=== PATIENT | female | born 1990 | race African-American/Black ===

== ENCOUNTER 2019-02-01 21:36 | Emergency (ER) | payer SELFPAY ==
[~2019-02-01] VITALS: Ht 180.3 cm; Wt 65.8 kg
--- NOTE | 2019-02-01 21:45 | NUR ---
ED Nurse Note: Patient walked into ED c/o left ear pain that has been an ongoing issue for the past 3 days, patient rates his pain a 5/10 pain. no drainage or discharge coming out form the ear, patient is alert and oriented x4, ambulatory with a steady gait, VSS
[2019-02-01 21:52] VITALS: BP 113/76
[2019-02-01] MEDS ORDERED: DEBROX15 M1 BOTH EARS (22:00)
[2019-02-01] MEDS ORDERED: AMOXICILLIN875 MG PO (22:00)
--- NOTE | 2019-02-01 22:01 | Emergency Room Report ---
History of Present Illness General Chief Complaint: Earache Source: Patient Present Illness HPI 28-year-old female presents with left ear pain that started 1 week ago, severity is moderate, constant, no aggravating relieving factors no chest pain no fever no chills, patient presents for evaluation. Allergies: Coded Allergies: No Known Allergies (Unverified , 02/01/19) Patient History Past Medical History: see triage record Last Menstrual Period: 01/27/19 Now: No Reviewed Nursing Documentation: PMH: Agreed; PSxH: Agreed Nursing Documentation-PMH Past Medical History: No Stated History Review of Systems All Other Systems: negative except mentioned in HPI Physical Exam Vital Signs Date Time Temp Pulse Resp B/P (MAP) Pulse Ox O2 Delivery O2 Flow Rate FiO2 02/01/19 21:41 97.9 54 16 113/76 (88) 99 Room Air Sp02 EP Interpretation: reviewed, normal General Appearance: well appearing, no apparent distress, alert Head: normocephalic, atraumatic Eyes: bilateral eye PERRL, bilateral eye EOMI ENT: uvula midline, moist mucus membranes, other - Could not visualize the TMs bilaterally, patient with dry hard earwax, Neck: supple, thyroid normal, supple/symm/no masses Respiratory: lungs clear, no respiratory distress, no retraction, no accessory muscle use Cardiovascular #1: normal peripheral pulses, regular rate, rhythm, no edema, no gallop, no murmur Gastrointestinal: non tender, soft, no guarding, no rebound Musculoskeletal: normal inspection Neurologic: alert, oriented x3 Psychiatric: mood/affect normal Skin: no rash, warm/dry Medical Decision Making Diagnostic Impression: Primary Impression: Otitis media Qualified Codes: H66.92 - Otitis media, unspecified, left ear ER Course Patient with left ear pain consistent with otitis media, difficult to appreciate TM secondary to patient's earwax that is hard in nature difficult to remove, patient counseled to start Debrox, will start medications, disposition home with return precautions Last Vital Signs Date Time Temp Pulse Resp B/P (MAP) Pulse Ox O2 Delivery O2 Flow Rate FiO2 02/01/19 21:41 97.9 54 16 113/76 (88) 99 Room Air Disposition: HOME, SELF-CARE Condition: Stable Scripts Carbamide Peroxide (DEBROX) 15 Ml Drops 5 DROP BOTH EARS TWICE A DAY for 4 Days, #1 ML 0 Refills Prov: Balakumar,Aldo MD 02/01/19 Amoxicillin (AMOXICILLIN) 875 Mg Tablet 875 MG PO Q12H for 7 Days, #14 TAB 0 Refills Prov: Aldo Hu MD 02/01/19 Referrals: [facility] Patient Instructions: Otitis Media, Adult, [id number] Additional Instructions: The patient was provided with discharge instructions, notified to follow-up with a primary care doctor and or specialist in the next 24-48 hours, and to return to the ED if they have worsening of their symptoms. Please note that this report is being documented using [employer] technology. This can lead to erroneous entry secondary to incorrect interpretation by the dictating instrument. Aldo Hu MD Feb 01, 2019 22:00
[2019-02-01 22:10] VITALS: BP 115/79
--- NOTE | 2019-02-01 22:10 | NUR ---
ER DISCHARGE NOTE: Patient is cleared to be discharged per ERMD, pt is aox4, on room air, with stable vital signs. pt was given dc and prescription instructions, pt was able to verbalize understanding, pt id band removed without complications. pt is able to ambulate with steady gait. pt took all belongings.
== END 2019-02-01 22:10 | disposition home or self-care (01) ==
LOC: EMR 21:57
DX: H66.92 Otitis media, unspecified, left ear (principal)
CPT/HCPCS: 99282